=== PATIENT | male | born 1940 | race Caucasian/White ===

== ENCOUNTER → 2020-05-06 | Outpatient (CLI) | payer MEDICARE, BC ==
[2020-05-06 12:31] LABS: RED BLOOD COUNT 5.17 M/UL (4.20-5.50); WHITE BLOOD COUNT 7.4 K/UL (4.5-11.0)
[2020-05-06 12:50] LABS: BUN/CREATININE RATIO 14 (0-10)
== END ==
LOC: LAB 11:26
PROVIDERS: Nurse Practitioner
DX: R07.9 Chest pain, unspecified (principal); Z86.79 Personal history of other diseases of the circulatory system; R94.31 Abnormal electrocardiogram [ECG] [EKG]; I45.10 Unspecified right bundle-branch block
CPT/HCPCS: 36415; 80053; 82550; 82553; 84484; 85025; 93005

== ENCOUNTER 2021-03-22 15:19 | Emergency (ER) | payer MEDICARE ==
[2021-03-22 17:41] LABS: HEMOGLOBIN 15.9 gm/dl (14.0-17.5); RED BLOOD COUNT 5.19 M/UL (4.20-5.50); WHITE BLOOD COUNT 6.6 K/UL (4.5-11.0)
[2021-03-22 18:06] LABS: BUN/CREATININE RATIO 25 (0-10)
[2021-03-22] MEDS ORDERED: ZOFRAN ODT 4 MG4 MG GT (21:21)
== END 2021-03-22 21:35 | disposition home or self-care (01) ==
LOC: ER1 15:19
PROVIDERS: Nurse Practitioner
DX: R11.10 Vomiting, unspecified (principal); E11.9 Type 2 diabetes mellitus without complications
CPT/HCPCS: 80053; 81001; 82150; 83605; 83690; 85025; 96374; 99284; J2405

== ENCOUNTER → 2021-05-11 | Outpatient (CLI) | payer MEDICARE ==
[~2021-05-11] MED LIST: ADVANCED EYE H1 EACH PO; ASPIRIN EC81 MG PO; ELIQUIS5 M1 PO; FAMOTIDINE20 MG PO; FUROSEMIDE20 MG PO; GLIPIZIDE10 MG PO; KLOR-CON M2020 MEQ PO; LEVEMIR FL100 UNIT/1 SQ; METFORMIN HCL1000 MG PO; METOPROLOL TART25 MG PO; ZOFRAN ODT 4 MG4 MG GT
== END ==
LOC: EXRD 10:45
DX: J18.9 Pneumonia, unspecified organism (principal); U09.9 Post COVID-19 condition, unspecified; J96.01 Acute respiratory failure with hypoxia; R91.8 Other nonspecific abnormal finding of lung field
CPT/HCPCS: 71046; 94060; 94729

== ENCOUNTER → 2021-09-20 | Outpatient (CLI) | payer MEDICARE | LOC: EXRD 13:50 | DX: R93.89 Abnormal findings on diagnostic imaging of other specified body structures (principal); R91.8 Other nonspecific abnormal finding of lung field | CPT/HCPCS: 71046 ==